=== PATIENT | female | born 1970 | race Caucasian/White ===

== ENCOUNTER 2018-06-10 11:49 | Emergency (ER) | payer OTHER, MEDICAID ==
[2018-06-10 11:54] VITALS: BP 113/78; TEMP 97.7
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
[2018-06-10 15:43] VITALS: PULSE 64; RESP 18
[2018-06-10 15:46] VITALS: O2SAT 94
== END 2018-06-10 15:46 | disposition home or self-care (01) ==
LOC: H.ER 11:49
DX: S09.90XA Unspecified injury of head, initial encounter (principal); S13.4XXA Sprain of ligaments of cervical spine, initial encounter; V43.62XA Car passenger injured in collision with other type car in traffic accident, initial encounter; Y92.410 Unspecified street and highway as the place of occurrence of the external cause; E11.9 Type 2 diabetes mellitus without complications